=== PATIENT | female | born 1995 | race Caucasian/White ===

== ENCOUNTER 2016-10-17 20:58 | Emergency (ER) | payer OTHER ==
--- NOTE | 2016-10-17 21:12 | PDOC ---
History of Present Illness - General History Source: Patient Exam Limitations: No Limitations - History of Present Illness Initial Comments: 10/17/16 21:12 The patient is a 21 year old female, with a significant past medical history of PCOs who presents to the emergency department with a right hand injury about an hour ago. She reports smashing her hand into the corner of a door about an hour prior to presentation. She reports since having shooting pain throughout her hand. She also notes not being to move her hand normally with limited ROM. She denies any abso-ybi-qwzoohe medication use. She denies any numbness and tingling in her UE. She denies recent fevers, chills, headache or dizziness. She denies recent nausea, vomit, diarrhea or constipation. Allergies: NKA Past surgical history: None reported. Social history: Nonsmoker. Denies EtOH use and drug use. Denies any sexual activity. <Kye Eisenberg - Last Filed: 10/17/16 21:16> <Sandra Orozco - Last Filed: 10/18/16 04:03> - General Chief Complaint: Pain Stated Complaint: R HAND INJURY Time Seen by Provider: 10/17/16 21:00 Past History <Kye Eisenberg - Last Filed: 10/17/16 21:16> - Past Medical History Other medical history: PCOS, ANXIETY - Immunization History Immunization Up to Date: Yes - Psycho/Social/Smoking Cessation Hx Anxiety: No Suicidal Ideation: No Smoking History: Unknown if ever smoked Have you smoked in the past 12 months: No Number of Cigarettes Smoked Daily: 0 Information on smoking cessation initiated: No Hx Alcohol Use: No Drug/Substance Use Hx: No Substance Use Type: None <Sandra Orozco - Last Filed: 10/18/16 04:03> - Past Medical History Allergies/Adverse Reactions: Allergies Allergy/AdvReac Type Severity Reaction Status Date / Time No Known Allergies Allergy Unverified 10/17/16 21:08 Home Medications: Ambulatory Orders Escitalopram Oxalate [Lexapro -] 20 mg PO DAILY 10/17/16 Review of Systems - Review of Systems All Other Systems: Reviewed and Negative <Kye Eisenberg - Last Filed: 10/17/16 21:16> *Physical Exam - Vital Signs Last Vital Signs Temp Pulse Resp BP Pulse Ox 98 F 78 14 123/85 100 10/17/16 21:05 10/17/16 21:05 10/17/16 21:05 10/17/16 21:05 10/17/16 21:05 - Physical Exam Comments: 10/17/16 21:13 GENERAL: The patient is awake, alert, and fully oriented, in no acute distress. HEAD: Normal with no signs of trauma. EYES: Pupils equal, round and reactive to light, extraocular movements intact, sclera anicteric, conjunctiva clear with no pallor. ENT: Ears normal, nares patent, oropharynx clear without exudates. Moist mucous membranes. NECK: Normal range of motion, supple without lymphadenopathy, JVD, or masses. LUNGS: Breath sounds equal, clear to auscultation bilaterally. No wheeze/ crackles. HEART: Regular rate and rhythm, normal S1 and S2 without murmur or rub. ABDOMEN: Soft/nontender/nondistended. BS wnl. No guarding or rebound. No palpable masses. No hepatosplenomegaly. EXTREMITIES:Moderate tenderness at the proximal mid dorsum of the right hand without deformity edema or ecchymosis.Pain worsened with abduction of fingers. Remanier of extremities exam is normal. NEUROLOGICAL: Cranial nerves II through XII grossly intact. Normal speech, normal gait. PSYCH: Normal mood, normal affect. SKIN: Warm, Dry, normal turgor, no rashes or lesions noted. <Kye Eisenberg - Last Filed: 10/17/16 21:16> - Vital Signs Last Vital Signs Temp Pulse Resp BP Pulse Ox 98 F 78 14 123/85 100 10/17/16 21:05 10/17/16 21:05 10/17/16 21:05 10/17/16 21:05 10/17/16 21:05 <Sandra Orozco - Last Filed: 10/18/16 04:03> Progress Note - Progress Note Progress Note: Documentation has been prepared under my direction and personally reviewed by me in its entirety. I attest that this documented accurately reflects all work, treatment, procedures and medical decision making performed by me. <Sandra Orozco - Last Filed: 10/18/16 04:03> Medical Decision Making - Medical Decision Making As noted above, this 21-year-old woman, otherwise healthy, presents with a history of direct trauma to the dorsum of her right hand. Patient struck the area against a door about an hour prior to presentation. She describes pain in the area radiating to her fingers and worse with movement of her fingers. Exam as noted above. Right hand x-ray shows no evidence of acute fracture or dislocation. Clinical presentation most consistent with a contusion of the right hand. Tim wrap was applied to the hand. Patient will be discharged with instructions to elevate the hand as much as possible as well as applying ice to the area over the next 48 hours. Tim wrap should be applied during the day and taken off at night. She can take over-the- counter anti-inflammatories as needed for the pain. The patient will be given Motrin 600 mg now. Referral information for Dr. Llanes will be given to the patient with whom she should follow-up if she has persistent <Sandra Orozco - Last Filed: 10/18/16 04:03> *DC/Admit/Observation/Transfer - Attestations Scribe Attestion: 10/17/16 21:13 Documentation prepared by Kye Eisenberg, acting as medical transport specialist for Sandra Orozco MD. <Kye Eisenberg - Last Filed: 10/17/16 21:16> <Sandra Orozco - Last Filed: 10/18/16 04:03> Diagnosis at time of Disposition: Contusion of right hand Qualifiers: Encounter type: initial encounter Qualified Code(s): S60.221A - Contusion of right hand, initial encounter - Discharge Dispostion Disposition: HOME Condition at time of disposition: Stable - Referrals Referrals: Carlton Llanes MD [Staff Physician] - - Patient Instructions Printed Discharge Instructions: DI for Hand Pain Additional Instructions: elevate/ice to hand for the next 2 days tim wrap during day for 3-4 days motrin/aleve/tylenol as needed for pain followup with Dr Llanes/Vicky(orthopedic group) if pain is persistent
[2016-10-17 21:13] VITALS: BP 123/85; PULSE 78; TEMP 98; BMI 29.1
[2016-10-17] MEDS ORDERED: IBUPROFEN 600 MG TABLET (FP) PO ONE ×2 (22:17→22:21)
== END 2016-10-17 22:22 | disposition home or self-care (01) ==
LOC: FER 20:58
DX: S60.221A Contusion of right hand, initial encounter (principal); W22.03XA Walked into furniture, initial encounter; Y93.9 Activity, unspecified; Y92.9 Unspecified place or not applicable; E28.2 Polycystic ovarian syndrome; F41.9 Anxiety disorder, unspecified
CPT/HCPCS: 73130-TC-RT; 99283-25

== ENCOUNTER 2019-04-07 19:33 | Emergency (ER) | payer OTHER ==
[2019-04-07 19:56] VITALS: BP 130/89; PULSE 104; TEMP 98.6; BMI 28.7
[2019-04-07] MEDS ORDERED: KETOROLAC TROMETHAMINE 60 MG/2 ML VIAL IM ONE (20:31)
[2019-04-07] MEDS ORDERED: KETOROLAC TROMETHAMINE 60 MG/2 ML VIAL ONE (20:33)
--- NOTE | 2019-04-08 00:52 | PDOC ---
Documentation entered by Mitchell Giron SCRIBE, acting as scribe for Sandra Orozco MD. Sandra Orozco MD: This documentation has been prepared by the Mack bhatti Elijah, SCRIBE, under my direction and personally reviewed by me in its entirety. I confirm that the documentation accurately reflects all work, treatment, procedures, and medical decision making performed by me. History of Present Illness - General Chief Complaint: Pain, Acute Stated Complaint: LEFT SIDED CHEST PAIN X 1 WEEK History Source: Patient Exam Limitations: No Limitations - History of Present Illness Initial Comments: 04/07/19 20:29 Patient is a 24 year old female with a significant past medical history of endometriosis who presents to the ED with L-Sided Chest Pain lasting for x3 days. Patient reports that the pain started while she was laying down and radiates to her left arm, scapula and breast. Patient notes the pain has been constant, dull and with episodes that last for a few seconds where the pain is sharp. Patient denies SOB but described an episode of feeling more tired than usual [place]. Denies any strenuous activities, fever, sore throat and cough. Allergies: NKA Past History - Past Medical History Allergies/Adverse Reactions: Allergies Allergy/AdvReac Type Severity Reaction Status Date / Time No Known Allergies Allergy Verified 04/07/19 19:35 Home Medications: Ambulatory Orders Naproxen Sodium [Anaprox Ds] 550 mg PO BID #20 tablet 04/07/19 COPD: No Psychiatric Problems: Yes (DEPRESSION) Other medical history: PCOS - Immunization History Immunization Up to Date: Yes - Suicide/Smoking/Psychosocial Hx Smoking History: Never smoked Have you smoked in the past 12 months: No Number of Cigarettes Smoked Daily: 0 Information on smoking cessation initiated: No Hx Alcohol Use: Yes (ONCE A MONTH) Drug/Substance Use Hx: No Substance Use Type: None Review of Systems - Review of Systems Comments:: 04/07/19 20:34 All systems are reviewed and negative except as noted in the HPI *Physical Exam - Vital Signs Last Vital Signs Temp Pulse Resp BP Pulse Ox 98.6 F 104 H 16 130/89 100 04/07/19 19:37 04/07/19 19:37 04/07/19 19:37 04/07/19 19:37 04/07/19 19:37 - Physical Exam Comments: 04/07/19 20:31 GENERAL: Awake, alert, and fully oriented, in no acute distress HEAD: No signs of trauma EYES: PERRLA, EOMI, sclera anicteric, conjunctiva clear ENT: Auricles normal inspection, hearing grossly normal, nares patent, oropharynx clear without exudates. Moist mucosa NECK: Normal ROM, supple, no lymphadenopathy, JVD, or masses LUNGS: Breath sounds equal, clear to auscultation bilaterally. No wheezes, and no crackles CHEST: +Generalized Mild tenderness of Chest Wall (L>R). No Crepitus, No Step- offs. +Moderater generalized tenderness of Left Breast with scattered cystic density without fluctuance or enduration. Nipple Normal without discharge or enduration. HEART: Regular rate and rhythm, normal S1 and S2, no murmurs, rubs or gallops ABDOMEN: Soft, nontender, normoactive bowel sounds. No guarding, no rebound. No masses EXTREMITIES: Normal range of motion, no edema. No clubbing or cyanosis. No cords, erythema, or tenderness NEUROLOGICAL: Cranial nerves II through XII grossly intact. Normal speech, normal gait SKIN: Warm, Dry, normal turgor, no rashes or lesions noted. Twelve-lead electrocardiogram performed: Normal sinus rhythm at 65 bpm. Cades, intervals, waveforms are all normal. No evidence of acute ST or T-wave abnormalities. No evidence of acute cardiac arrhythmia. Medical Decision Making - Medical Decision Making As noted above, this 24-year-old woman presents with a few day history of left- sided chest pain, worsened with deep breathing and movement. No history of overuse or trauma to the area. No recent fever or upper respiratory infection symptoms. Patient has one previous history of apparent costochondritis or chest wall strain a few years ago . She has no shortness of breath or cough. She has one risk factor for coronary artery disease (early NH in familyfather, age 52) and no risk factors for acute thromboembolic disease. Exam as noted. She has generalized tenderness of her rib cage bilaterally, although left side is significantly more tender. Also, she has generalized tenderness of her left breast without masses/abscess noted. Although she has some fine cystic thickening of both breasts, no areas are particularly suspicious for infection or neoplasm. Clinical presentation most consistent with musculoskeletal etiology such as costochondritis or chest wall strain. Infectious etiology such as pleuritis possible although she has no rub on exam. Also, reason for mastalgia is unclear (patient is mid cycle currently). EKG, as noted is normal. We will treat presumptively with nonsteroidal anti-inflammatory medication( Naproxen) and follow-up with general medical doctor. The patient is currently on work visa from [place] and has no local physician. Referral to Dr. Duffy for follow-up has been given to the patient She should return to ER if she has shortness of breath/severe, persistent pain/ develops high fever or cough *DC/Admit/Observation/Transfer Diagnosis at time of Disposition: Chest wall pain, Mastalgia - Discharge Dispostion Disposition: HOME Condition at time of disposition: Stable - Prescriptions Prescriptions: Naproxen Sodium [Anaprox Ds] 550 mg PO BID #20 tablet - Referrals Referrals: Yuni Duffy MD [Staff Physician] - - Patient Instructions Printed Discharge Instructions: Mastalgia, DI for Costochondritis Additional Instructions: Avoid strenuous activity involving upper body for the next week Naproxen 550 mg twice a day as needed(take with food) Call Dr. Duffy's office tomorrow a.m. to arrange follow-up within the next 2- 3 days Return to ER if you have worsening pain/shortness of breath/fever - Post Discharge Activity
--- NOTE | 2019-04-08 10:56 | EKG ---
Test Reason : Blood Pressure : / mmHG Vent. Rate : 065 BPM Atrial Rate : 065 BPM P-R Int : 154 ms QRS Dur : 086 ms QT Int : 406 ms P-R-T Axes : 015 -03 003 degrees QTc Int : 422 ms NORMAL SINUS RHYTHM NORMAL ECG NO PREVIOUS ECGS AVAILABLE Confirmed by CONNIE MCMAHON, LI ([id number]) on 04/08/2019 10:56:03 AM Referred By: DR MICHELLE Confirmed By:LI ROSALES MD
== END 2019-04-07 21:04 | disposition home or self-care (01) ==
LOC: FER 19:33
PROC: 3E0233Z Introduction of Anti-inflammatory into Muscle, Percutaneous Approach (ICD-10-PCS; principal; 2019-04-07)
DX: R07.89 Other chest pain (principal); N64.4 Mastodynia; F32.9 Major depressive disorder, single episode, unspecified; E28.2 Polycystic ovarian syndrome
CPT/HCPCS: 93005; 99281-25